=== PATIENT | female | born 1990 | race Caucasian/White ===

== ENCOUNTER 2023-06-27 20:40 | Emergency (ER) | payer OTHER ==
[~2023-06-27] VITALS: Ht 157.5 cm; Wt 72.6 kg
[~2023-06-27 20:40] MED LIST: PRENA1 PLUS CO1 EACH PO
[2023-06-27] MEDS ORDERED: AMOX TR-K CLV1 EAC1 PO (20:56)
[2023-06-27] MEDS ORDERED: IBU800 MG PO (20:56)
[2023-06-27] MEDS ORDERED: HYDROCODON-ACE1 EA10 PO (20:56)
[2023-06-27 21:12] VITALS: BP 135/96
== END 2023-06-27 21:13 | disposition home or self-care (01) ==
LOC: ED 20:40
DX: K04.7 Periapical abscess without sinus (principal); F17.200 Nicotine dependence, unspecified, uncomplicated; Z88.8 Allergy status to other drugs, medicaments and biological substances; Z91.048 Other nonmedicinal substance allergy status; Z91.018 Allergy to other foods
CPT/HCPCS: 96372; 99282; A9270; J1100